=== PATIENT | male | born 1975 | race Caucasian/White ===

== ENCOUNTER 2016-12-05 08:51 | Emergency (ER) | payer OTHER ==
[~2016-12-05] VITALS: Ht 180.3 cm; Wt 124.7 kg
[~2016-12-05 08:51] MED LIST: CIPRO 500MG TA500 MG PO; FLOMAX 0.4MG C0.4 MG PO; LORTAB 5/500 501 TAB PO; NOMEDS *; PYRIDIUM 200MG200 MG PO; TRAMADOL 50MG T50 MG PO
[2016-12-05 09:17] LABS: URINE BILIRUBIN - DIPSTICK NEGATIVE (NEG); URINE BLOOD 2+ (NEG)
[2016-12-05] MEDS ORDERED: FLONASE 50 MCG16 GM (09:34)
[2016-12-05] MEDS ORDERED: BACTRIM DS 8001 TA1 PO (09:34)
[2016-12-05] MEDS ORDERED: BROMFED DM COU118 ML PO (09:34)
[2016-12-05] MEDS ORDERED: CIPRO 500MG TA500 MG PO (09:37)
--- NOTE | 2016-12-05 09:38 | [facility] Report ---
History of Present Issue Date/Time Seen by Provider 12/05/16 0924 Visit Reason Pt arrived:Walked Presenting Problem:PT C/O FLANK PAIN X2 DAYS AND COUGH X1 WEEK Location if Accident: Onset of symptoms date/time:/ or onset unknown for:MEDICAL HX UNKNOWN Have you (or family members/close friends) recently traveled outside the [place]? N If Yes, where/when: Have you had exposure to infectious disease within the past month? TB? Other? Specify: Patient state that he has been having pain in his left flank area for 2 days and burning when he urinates. States that he thinks he may have a kidney infection. States that he has had kidney stones before and this pain is different. States that he feels like he has to urinate frequently and feeling of urgency. States that he also has had a cough and sinus drainage for over a week that has continued to get worse. States that he has take several over the counter medications for it but it has not worked ALLERGIES Coded Allergies: phenobarbital (Mild, 12/05/16) Home Medications Active Scripts Ciprofloxacin HCl (Cipro 500MG TAB) 500 MG PO BID #10 TAB Prov: 11/20/12 PHENAZOPYRIDINE HCL (Phenazopyridine HCl) 100 MG PO TID #10 TABLET Prov: 11/20/12 TAMSULOSIN HCL (Flomax 0.4MG) 0.4 MG PO QHS 7 Days Prov: 09/26/12 Acetaminophen W/ Hydrocodone (Lortab 5/500) 1 TAB PO Q4H PRN #20 TAB Prov: 09/26/12 History Medical History General CAD? No Angina: No OK: No Hypertension? No Hyperlipidemia? No CHF? No DVT? No PE? No COPD? No Asthma? No Anemia? No GERD? No Gastric ulcers? No GI Bleed? No Hernia? No Thyroid Problems? No Hypothyroidism? No CVA? No Seizures? Yes Diabetes? No Renal Insuffiency? No UTI? Yes Stones? Yes BPH? No GB Disease: No Nephritic Syndrome? No Asplenia? No Hepatitis? No Sickle Cell Disease? No Arthritis? No Migraines? No Cataracts? No Glaucoma? No MRSA? No HIV? No TB? No Anxiety? No Depression? No Cancer? No More? No Immunization HX DT/Tetanus > 10 YRS Flu 2011-FSN Pneumonia REFUSES Surgical Hx Previous Surgery?Y BACK SURGERY Family History Family HX Cancer Yes Social History Smoking Hx Smoker: Never Smoker Tobacco: No Alcohol Alcohol: Yes Review of Systems All Other Systems Reviewed and Negative Respiratory cough Genitourinary dysuria, frequency, pain. Physical Exam Vital Signs Vital Signs Date Time Temp Pulse Resp B/P Pulse O2 O2 Flow FiO2 Ox Delivery Rate 12/05 914 98.2 97 20 145/97 98 General Appearance normal appearance, WD/WN, no apparent distress Ear, Nose, Throat throat mildly red, drainage noted. Reports clear drainage from nose Respiratory Status Yes: trachea midline, chest symmetrical, non tender chest. No: respiratory distress. Lung Sounds bilateral: normal breath sounds, lungs clear. 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 No Results/Orders Laboratory Tests 12/05/16 0917: Urine Color YELLOW, Urine Appearance Clear, Urine pH 7.0, Ur Specific [place] 1.015, Urine Protein 100, Urine Ketones NEGATIVE, Urine Blood 2+ H, Urine Nitrate NEGATIVE, Urine Bilirubin NEGATIVE, Urine Urobilinogen 0.2, Ur Leukocyte Esterase 3+ H, Urine Glucose NEGATIVE Orders Procedure Date/time Status [facility] URINE DIPSTICK 12/05 916 Complete Progress [facility] Progress Notes Comment Labs observed and discussed with patient due to history of kidney stones and blood in urine recommended that patient be sent to ER for CT patient declined going to the ER states that pain is not like what he had before with Kidney stone and not having any pain right now just discompfort with urination. Patient informed that if pain returns go straight to the ER Departure Departure Time of Disposition 929 Disposition DC Home or Self Care(routine) Clinical Impression Primary Impression: UTI (urinary tract infection) Qualifiers: Urinary tract infection type: site unspecified Hematuria presence: with hematuria Qualified Code: N39.0 - Urinary tract infection, site not specified Condition STABLE Referrals Gilberto Park MD (Family): 3 Days-Call Office If no improvement or worsening of symptoms Patient Instructions DI for Urinary Tract Infection (UTI), Urinary Tract Infection Additional Instructions * Monitor Temp. Tylenol and/or Ibuprofen as needed. ER if fever is no less than 101 despite alternating Tylenol and Ibuprofen * Encourage fluids, water, Gatorade, powerade this will help to flush the kidneys Make sure to take medication with food and eat yogurt at least twice daily while taking this medication * Warm salt water gargles for throat irritation also will help with cough and throat irritation *Warm fluids will help to soothe the throat from coughing *Sleep elevated will help with the drainage from the nose *humidifier or vaporizer will help with the coughing *Flonase 2 sprays each nostril daily but may take 2-3 days to notice improvement with it *Bromfed may cause drowsiness. Know how it effect you or your child. Before driving, caring for small children or sending your child to school Follow up IMMEDIATELY for new or worsening of symptoms OR no noticeable improvement over the next 48-72 hours. 911 immediately for any life threatening symptoms such as chest pain or difficulty breathing Discharge Counseling Counseled pt/family regarding diagnosis, test results, medications/RX, home care, follow up needs Prescriptions Current Visit Scripts D-METHORPHAN HB/P-EPD HCL/BPM (Bromfed Dm Cough Syrup) 10 ML PO Q4HP PRN cough #120 SYR Fluticasone Propionate (Flonase 50 Mcg Nasal [place]) 2 SPRAY NA DAILY #1 BOT Ciprofloxacin HCl (Cipro 500MG TAB) 500 MG PO BID #14 TAB at 0938
[2016-12-05 09:40] VITALS: BP 145/97
== END 2016-12-05 09:42 | disposition home or self-care (01) ==
LOC: UTC 08:51
PROVIDERS: Nurse Practitioner
DX: N39.0 Urinary tract infection, site not specified (principal); R31.9 Hematuria, unspecified; Z87.442 Personal history of urinary calculi; Z88.8 Allergy status to other drugs, medicaments and biological substances